=== PATIENT | female | born 1965 | race Caucasian/White ===

== ENCOUNTER 2018-05-28 18:45 | Emergency (ER) | payer OTHER ==
[2018-05-28 18:52] VITALS: BP 142/92; PULSE 96; TEMP 98.5; BMI 25.2
[2018-05-28] MEDS ORDERED: ALBUTEROL SO4 2.5/IPRATROPIUM 0.5 INH SOL 3 ML VIAL.NEB. NEB ONE (19:00)
--- NOTE | 2018-05-28 19:05 | PDOC ---
History of Present Illness - General Chief Complaint: Injury Stated Complaint: FALL Time Seen by Provider: 05/28/18 18:53 History Source: Patient Exam Limitations: No Limitations - History of Present Illness Initial Comments: CHIEF COMPLAINT: 52 y/o afebrile female with left shoulder and left knee pain after slip and fall yesterday. HISTORY OF PRESENT ILLNESS: The patient slipped on an escalator yesterday, injuring her left shoulder and knee. She was able to walk after the fall and denies LOC and head trauma. She can move both of her left arm and left leg but wanted to have it "check out". She took 600mg of ibuprofen yesterday. Vital signs on arrival are within normal limits. REVIEW OF SYSTEMS: GENERAL/CONSTITUTIONAL: No fever/chills. No weakness. No weight change. MUSCULOSKELETAL: +left shoulder and left knee pain. No neck or back pain. SKIN: No rash or easy bruising. NEUROLOGIC: No headache, vertigo, loss of consciousness, or loss of sensation. PHYSICAL EXAM: VITAL_SIGNS: within normal limits GENERAL_APPEARANCE: alert, cooperative, no obvious discomfort. Patient is ambulatory with normal gait. MENTAL_STATUS: speech clear, oriented X 3, responds appropriately to questions. NEURO: motor intact and sensory intact in injured extremity. EXTREMITIES: TTP of left trapezius muscle. Mild TTP of left AC joint. Full flexion, extension, abduction and adduction of left arm. Equal shoulder shrug and mat machine tender strength b/l. No clavicular deformities, tenting or TTP b/l. Minimal TTP of left lateral knee without swelling, erythema, deformities. No TTP of left tibial plateau. Full ROM of left knee. SKIN: warm, dry, good color. Past History - Past Medical History Allergies/Adverse Reactions: Allergies Allergy/AdvReac Type Severity Reaction Status Date / Time No Known Allergies Allergy Verified 05/28/18 18:52 Home Medications: Ambulatory Orders Lisinopril/Hydrochlorothiazide [Lisinopril-Hctz 20-12.5 mg Tab] 1 tab PO DAILY 12/25/13 COPD: No HTN: Yes - Surgical History Abdominal Surgery: Yes (FIBROIDS REMOVED) - Suicide/Smoking/Psychosocial Hx Smoking History: Never smoked Hx Alcohol Use: No Substance Use Type: None *Physical Exam - Vital Signs Last Vital Signs Temp Pulse Resp BP Pulse Ox 98.5 F 96 H 18 142/92 98 05/28/18 18:48 05/28/18 18:48 05/28/18 18:48 05/28/18 18:48 05/28/18 18:48 Medical Decision Making - Medical Decision Making A/P: 52 y/o female with minor left shoulder strain and left knee pain. Plan is to give PO ibuprofen and discharge with supportive care instructions. The patient verbalizes understanding of all instructions, has no further questions and is awaiting discharge. *DC/Admit/Observation/Transfer Diagnosis at time of Disposition: Left arm pain Left shoulder strain Qualifiers: Encounter type: initial encounter Qualified Code(s): S46.912A - Strain of unspecified muscle, fascia and tendon at shoulder and upper arm level, left arm , initial encounter Left knee pain Qualifiers: Chronicity: acute Qualified Code(s): M25.562 - Pain in left knee - Discharge Dispostion Disposition: HOME Condition at time of disposition: Good - Referrals Referrals: Tacho Sapp MD [Staff Physician] - - Patient Instructions Printed Discharge Instructions: How To Perform RICE (Rest, Ice, Compress, Elevate), DI for Shoulder Sprain, DI for Knee Pain Additional Instructions: Discharge Instructions: -You have a shoulder strain and bruising to your left knee -Please take 600mg of over the counter ibuprofen every 6 hours for pain with food -Apply ice to your arm, shoulder and leg to help with pain -Follow RICE instructions -Call Dr. Sapp in 4 days to schedule an appointment if no improvement in pain. Instrucciones de descarga: -Tienes zonia distensin en el hombro y moretones en la rodilla izquierda. -Por favor, tome 600 mg de ibuprofeno sin receta cada 6 horas para el dolor con la comida. -Aplique hielo en el brazo, el hombro y la pierna para aliviar el dolor. -Seguir las instrucciones de ARROZ. -Llame al Dr. Sapp en 4 beltrán para programar zonia kendal si no hay mejora en el dolor. Print Language: TURKMEN - Post Discharge Activity
[2018-05-28] MEDS ORDERED: IBUPROFEN 600 MG TABLET (FP) PO ONE ×2 (19:06→19:13)
== END 2018-05-28 19:14 | disposition home or self-care (01) ==
LOC: JERFT 18:45
DX: S46.812A Strain of other muscles, fascia and tendons at shoulder and upper arm level, left arm, initial encounter (principal); M25.562 Pain in left knee; W10.0XXA Fall (on)(from) escalator, initial encounter; Y93.89 Activity, other specified; Y92.89 Other specified places as the place of occurrence of the external cause; Y99.8 Other external cause status
CPT/HCPCS: 99281-25

== ENCOUNTER 2023-03-09 04:32 | Day surgery (SDC) | payer OTHER ==
[2023-03-07 12:04] VITALS: BMI 23.9
[2023-03-09 09:20] VITALS: TEMP 97
[2023-03-09 10:01] VITALS: BP 143/93; PULSE 85; RESP 17
== END 2023-03-09 10:00 | disposition home or self-care (01) ==
LOC: JASU-ENDO 04:32
PROVIDERS: ATTEND Internal Medicine Gastroenterology
PROC: 0DB98ZX Excision of Duodenum, Via Natural or Artificial Opening Endoscopic, Diagnostic (ICD-10-PCS; 2023-03-09)
PROC: 0DB68ZX Excision of Stomach, Via Natural or Artificial Opening Endoscopic, Diagnostic (ICD-10-PCS; 2023-03-09)
PROC: 0DBP8ZX Excision of Rectum, Via Natural or Artificial Opening Endoscopic, Diagnostic (ICD-10-PCS; principal; 2023-03-09 09:00)
DX: Z12.11 Encounter for screening for malignant neoplasm of colon (principal); K62.1 Rectal polyp; K64.8 Other hemorrhoids; K57.30 Diverticulosis of large intestine without perforation or abscess without bleeding; K29.50 Unspecified chronic gastritis without bleeding; K21.00 Gastro-esophageal reflux disease with esophagitis, without bleeding; Z80.0 Family history of malignant neoplasm of digestive organs